=== PATIENT | male | born 1970 | race Caucasian/White ===

== ENCOUNTER 2019-01-08 19:36 | Inpatient (IN) | payer OTHER, SELFPAY ==
[2019-01-08 19:37] VITALS: BP 142/91; PULSE 79; RESP 17; TEMP 35.8; O2SAT 96; BMI 26.5
[2019-01-08 20:21] LABS: D-Dimer Quantitative (DVT/PE) < 0.27 FEU/ug/m (0.27-0.49)
--- NOTE | 2019-01-08 20:44 | CT_ITS ---
STUDY: CT ABDOMEN AND PELVIS WITH AND WITHOUT CONTRAST REASON FOR EXAM: Male, 48 years old. Left flank pain RADIATION DOSAGE (If Supplied By Facility): CTDIvol = ( 14.09 ) mGy, DLP = ( 1882.01 ) mGycm TECHNIQUE: Transaxial images were obtained from the dome of the diaphragm to the symphysis pubis without oral contrast. 100 IV Isovue 300 was administered. Sagittal and coronal images were reconstructed. Individualized dose optimization techniques were used for this CT. COMPARISON: None. FINDINGS: The visualized lung bases are unremarkable. The visualized portions of the heart are within normal limits. Normal liver. Contracted thick-walled gallbladder without calcified stones likely physiologic.. Normal spleen. Normal pancreas. Normal bilateral adrenal glands. Normal right kidney. There is multifocal scarring of left renal cortex. There is an area of diminished perfusion and hypoattenuation in the lateral aspect of the left renal cortex which may be consistent with focal infarct or inflammatory lobar nephronia. Normal visualized stomach. Mild nonspecific ileus with fecal retention in the colon. No evidence for acute appendicitis. Normal abdominal aorta. Normal inferior vena cava. Normal retroperitoneum. Normal urinary bladder. Tiny fat-containing umbilical hernia Lumbar spine demonstrates mild stenosis. CT/CT Abd/Pelvis W/WO Contrast IMPRESSION: Old scarring of the left kidney. Focal area of diminished perfusion and hypoattenuation in the lateral cortex of the left kidney consistent with evolving infarct or inflammatory lobar nephronia. Electronically Signed: Naman Dumont MD at 21:50 EDT , Service support ,
[2019-01-08 20:54] LABS: Bacteria 0 SEEN /hpf (None Seen); Mucous, Urine 0 SEEN /hpf (<or=2+); Red Blood Cells-Urine 0 SEEN /hpf (0-5); Squamous Epithelial Cells - UA 0 SEEN /hpf (0-5); White Blood Cells 0 SEEN /hpf (0-5)
[2019-01-08 20:56] LABS: Color, Urine Yellow (Yellow); Glucose, Dipstick Normal (Normal); Ketone-Dipstick Negative (Negative); Leukocyte Esterase-Dipstick Negative /ul (Negative); Nitrite-Dipstick Negative (Negative); Occult Blood-Urine Negative /ul (Negative); Protein-Dipstick Negative (Negative); Urine Bilirubin Dipstick Negative (Negative); Urine Clarity Clear (Clear); Urine Urobilinogen Normal (Normal)
[2019-01-08 21:05] LABS: Absolute Lymphocyte Count 1.26 X10^3/ul (0.83-4.51); Absolute Neutrophil Count 3.7 X10^3/uL (2.0-7.7); Basophil# 0.02 X10^3/uL; Basophil% 0.4 % (0-1); Eosinophil# 0.06 X10^3/uL; Eosinophils% 1.1 % (0-5); Hematocrit 44.8 % (40-54); Hemoglobin 15.1 g/dl (13.0-16.5); Lymphocyte # 1.26 X10^3/ul (4.0); Mean Corp Hgb Conc 33.7 g/gl (32-36); Mean Corpuscular Hgb 29.8 pg (27.0-32.0); Mean Corpuscular Volume 88.4 fL (80-94); Mean Platelet Vol. 9.8 fl (6.2-12.0); Monocyte# 0.48 X10^3/uL; Monocyte% 8.7 % (0-10); Neutrophil # 3.66 X10^3/uL (2.7-7.7); Neutrophil % 66.6 % (47-70); Platelet Count 206 K/mm3 (150-450); RBC Distribution Width CV 12.5 % (11.6-14.6); Red Blood Count 5.07 M/mm3 (4.6-6.2); White Blood Count 5.5 K/mm3 (4.4-11.0)
[2019-01-08 21:08] LABS: POSITIVE COUNT NO; POSITIVE DIFFERENTIAL NO; POSITIVE MORPHOLOGY NO
[2019-01-08 21:11] LABS: Anion Gap 5 (5-15); BUN 21 mg/dL (7-18); BUN/Creat Ratio 17.4 RATIO (10-20); Calcium,Total 8.8 mg/dL (8.5-10.1); Chloride 102 mmol/L (98-107); Creatinine, Serum 1.21 mg/dL (0.70-1.30); EST Glomerular Filtration Rate 68 mL/min (>60); Est Glom Filt Rate - Afr Amer 83 mL/min (>60); Estimated Creatinine Clearance 77.93 ml/min; Glucose 123 mg/dL (74-106); Potassium 3.8 mmol/L (3.5-5.1); Sodium Level 137 mmol/L (136-145)
--- NOTE | 2019-01-08 21:43 | ED.VISSUMM ---
- ER Visit Summary Date of Service: 01/08/19 Chief Complaint: Left flank pain History of Present Illness: The patient is a 48 M presents to the emergency department left flank pain. Patient states he had the symptoms intermittently for the past 2 days. States it radiates into his left lower quadrant. He was concerned because he does have a history of prior renal infarct 6 years ago. He was on anticoagulants for a year and a half. He states he had a significant work-up and I cannot find a reason so his anticoagulants were stopped. He now takes aspirin. He denies any urinary symptoms. He denies any fevers or chills. He is otherwise been in his normal state of health. Physical Examination: Vital signs reviewed General: Well-nourished, well-developed Head: Normocephalic, atraumatic Eyes: Pupils equal and reactive, extraocular muscles intact Neck, supple, no lymphadenopathy Heart: Regular rate and rhythm Respiratory: No distress, clear bilaterally Abdomen: Soft, nontender, nondistended, no peritoneal signs Back: Nontender Extremities: Nontender, no edema, no cords Skin: Normal color no rash Neuro: Alert and oriented, no focal or lateralizing deficits Test Results: [] Emergency Department Course and Treatment: The patient underwent CT imaging. His labs are unremarkable. CT does show a small infarct in the left kidney that looks to be involving. In review of the patient, he was told that he may have had a problem with part of his heart that never closed from when he was young. I asked him if this was a PFO, but he is not sure. Occurrence of renal infarct, I do feel he is going to require admission. Hypercoagulability work-up was pursued. The patient was covered with Lovenox. He was discussed with the hospitalist and will be admitted. Treatment Plan: [] Disposition: Admission Impression: 1. Renal infarct This note was generated with [employer] dictation software. It may contain incorrect words, spelling, and punctuation that were not noted in review of the chart prior to signing ED Disposition - Plan for ED Patient: Referrals: Care Physician,No Primary [Primary Care Provider] -
[2019-01-08 22:47] VITALS: BP 132/78; PULSE 73; RESP 16; O2SAT 98
--- NOTE | 2019-01-08 22:52 | PCM.HP.STD ---
Problem List (1) Renal infarct Status: Acute (2) history of renal infarct Status: Chronic History of Present Illness Date of Admission: 01/08/19 Chief Complaint: L flank pain The patient is a 48 y/o M w/ PMHx: Hx Renal Infarct 2012 on anticoagulation x 1.5 years and then transitioned off as hypercoaguable work-up was negative who presents to the [facility] ED on 01/08/19 with history of L sided flank pain as well as L sided abdominal pain, described as a dull aching, constant, rated 6/10 ongoing x 2 days with associated nausea without emesis and no fever or chills. He noted it felt similar to when he had prior renal infarct prompting ED evaluation. Work-up in the ED included T 96.5, heart rate 79, BP 142/91, respiratory rate 17, 96% on room air, CBC unremarkable, d-dimer less than 0.27, hypercoagulable panel pending per ED, BMP unremarkable aside glucose 123, analysis unremarkable, CT abdomen and pelvis with noted old scarring of the left kidney, focal area of diminished perfusion and hypoattenuation in the lateral cortex of the left kidney consistent with evolving infarct or inflammatory lobar nephronia. In the ED following hypercoagulable panel being obtained, therapeutic Lovenox administered. Past Medical History Past Medical History (Chronic Problems): Chronic Problems history of renal infarct (Chronic) Allergies No Known Allergies Allergy (Verified 01/08/19 19:40) Home Medications: Ambulatory Orders Medication Instructions Recorded Aspirin [Aspir 81] 81 mg PO 01/08/19 Surgical History: - - Tonsillectomy, left thumb surgery. Psychiatric History: No pertinent psych hx Lives: Spouse/ Significant Other Smoking Status: Never smoker Tobacco Use: Non-smoker Alcohol: Occasional Drugs: None - *Family History Maternal History Items: - - Patient denies any marker maternal family history including heart disease, diabetes or cancer. Paternal History Items: - - Patient notes only a paternal family history of osteoarthritis otherwise his father is healthy without any history of diabetes, cancer, heart disease. Review of Systems Constitutional: Reports: Anorexia, Malaise, Fatigue. Denies: Chills, Fever, Weight Change HEENT: Denies: Head Aches, Sinus Congestion, Sinus Drainage Cardiovascular: Denies: Chest Pain, Palpitations Respiratory: Denies: Cough, Shortness of breath at rest, Sputum production Gastrointestinal: Reports: Abdominal Pain, Nausea. Denies: Vomiting Genitourinary: Reports: - - Left-sided flank pain.. Denies: Dysuria Musculoskeletal: Reports: Back Pain. Denies: Joint Pain, Joint Tenderness Skin: Denies: Rash, Wounds Neurological: Denies: Numbness, Tingling, Focal weakness Psychiatric: Denies: Anxiety, Depression, Homicidal Ideations, Suicidal Ideations Hematologic/ Lymphatic: Reports: Hx of blood clot. Denies: Easy Bruising, Easy Bleeding VTE Information - Inpt Only VTE Present on Admission: No VTE Mechan Device Prophylaxis: SCD's VTE Pharm Prophylaxis ordered?: Yes Patient Problems: Active and Suspected Problems Renal infarct (Acute) Subjective: Seated upright in the bed, fatigued appearance, notes ongoing mild discomfort to the flank and left abdomen. Objective: Physical Examination: General: awake, alert, oriented x 3 and cooperative, seated upright in the ED bed in no apparent distress. Skin: normal color, turgor, no icterus, cyanosis. HEENT: AT/NC, EOMI, PERRLA, MMM, no carotid bruits or JVD noted. Lungs: CTA bilaterally, moderate effort, mild decrease BL bases, no rales, ronchi or wheezing, mild worsening flank discomfort with palpation. Heart: Regular rate and rhythm; no gallop, rub audible. Abdomen: soft, mild discomfort to left sided abdominal palpation, no rebound or guarding, ND, normal BS, no HSM. Extremities: no cyanosis, clubbing, or edema. Neurological: patient awake, alert, oriented x 3; cognitive function intact; pupils equally reactive to light and accomodation; cranial nerves II-XII grossly normal, moving all 4 extremities, no focal deficits, strength moderately global decrease secondary to acute presentation. Psychiatric: affect appears mildly fatigued, no acute evidence of depressive or anxiety feelings. - Physical Exam Vital Signs Temp Pulse Resp BP Pulse Ox 96.5 F L 73 16 132/78 H 98 01/08/19 19:37 01/08/19 22:47 01/08/19 22:47 01/08/19 22:47 01/08/19 22:47 Oxygen Delivery Method Room Air Weight: 185 lb Body Mass Index (BMI) 26.5 Laboratory Tests Past 24 Hrs 01/08/19 01/08/19 01/08/19 19:50 19:50 19:50 WBC 5.5 RBC 5.07 Hgb 15.1 Hct 44.8 MCV 88.4 MCH 29.8 MCHC 33.7 RDW 12.5 RDW Differential 40.0 Plt Count 206 MPV 9.8 Immature Gran % (Auto) 0.200 Neut % (Auto) 66.6 Lymph % (Auto) 23.0 [place] % (Auto) 8.7 Eos % (Auto) 1.1 Baso % (Auto) 0.4 Absolute Neuts (auto) 3.7 Absolute Lymphs (auto) 1.26 Total Counted Not Reportable D-Dimer Quant (PE/DVT) < 0.27 L Protein C Antigen Functional Protein C Prot C Funct Activity Antithrombin III Ag Func Antithrombin III Factor V Leiden Mutat Sodium 137 Potassium 3.8 Chloride 102 Carbon Dioxide 30.0 Anion Gap 5 BUN 21 H Creatinine 1.21 Estim Creat Clear Calc 77.93 Est GFR (MDRD) Af Amer 83 Est GFR (MDRD) Non-Af 68 BUN/Creatinine Ratio 17.4 Glucose 123 H Calcium 8.8 Urine Color Urine Clarity Urine pH Ur Specific [place] Urine Protein Urine Glucose (UA) Urine Ketones Urine Occult Blood Urine Nitrite Urine Bilirubin Urine Urobilinogen Ur Leukocyte Esterase Urine RBC Urine WBC Ur Squamous Epith Cells Urine Bacteria Urine Mucus Beta-2-GPI IgG Ab Beta-2-GPI IgA Ab Beta-2-GPI IgM Ab Anti-Cardiolipin IgG Ab Anti-Cardiolipin IgM Ab Factor II DNA Analysis Miscellaneous Test 01/08/19 01/08/19 01/08/19 20:41 22:30 22:30 WBC RBC Hgb Hct MCV MCH MCHC RDW RDW Differential Plt Count MPV Immature Gran % (Auto) Neut % (Auto) Lymph % (Auto) [place] % (Auto) Eos % (Auto) Baso % (Auto) Absolute Neuts (auto) Absolute Lymphs (auto) Total Counted D-Dimer Quant (PE/DVT) Protein C Antigen Pending Functional Protein C Pending Prot C Funct Activity Pending Antithrombin III Ag Pending Func Antithrombin III Pending Factor V Leiden Mutat Pending Sodium Potassium Chloride Carbon Dioxide Anion Gap BUN Creatinine Estim Creat Clear Calc Est GFR (MDRD) Af Amer Est GFR (MDRD) Non-Af BUN/Creatinine Ratio Glucose Calcium Urine Color Yellow Urine Clarity Clear Urine pH 7.0 Ur Specific [place] 1.010 Urine Protein Negative Urine Glucose (UA) Normal Urine Ketones Negative Urine Occult Blood Negative Urine Nitrite Negative Urine Bilirubin Negative Urine Urobilinogen Normal Ur Leukocyte Esterase Negative Urine RBC 0 SEEN Urine WBC 0 SEEN Ur Squamous Epith Cells 0 SEEN Urine Bacteria 0 SEEN Urine Mucus 0 SEEN Beta-2-GPI IgG Ab Pending Beta-2-GPI IgA Ab Pending Beta-2-GPI IgM Ab Pending Anti-Cardiolipin IgG Ab Pending Anti-Cardiolipin IgM Ab Pending Factor II DNA Analysis Pending Miscellaneous Test Pending Assessment/Plan All Active Problems Renal infarct (Acute) The patient is a 48 y/o M w/ PMHx: Hx Renal Infarct 2012 on anticoagulation x 1.5 years and then transitioned off as hypercoaguable work-up was negative who presents to the [facility] ED on 01/08/19 with history of L sided flank pain as well as L sided abdominal pain, described as a dull aching, constant, rated 6/10 ongoing x 2 days with associated nausea without emesis and no fever or chills. (1) Acute Left Flank Pain secondary to Suspected Acute on Chronic Renal Infarct: Work-up in the ED included T 96.5, heart rate 79, BP 142/91, respiratory rate 17, 96% on room air, CBC unremarkable, d-dimer less than 0.27, hypercoagulable panel pending per ED, BMP unremarkable aside glucose 123, analysis unremarkable, CT abdomen and pelvis with noted old scarring of the left kidney, focal area of diminished perfusion and hypoattenuation in the lateral cortex of the left kidney consistent with evolving infarct or inflammatory lobar nephronia. Will admit to PCU, maintain on cardiac telemetry, hypercoaguable panel obtained in ED prior to administration anticoagulation, obtain ECHO. Will continue therapeutic Lovenox regimen pending AM CM assistance with possible transition to newer oral anticoagulant therapy. Given second episode will likely be lifelong anticoagulant therapy. Patient will need to follow-up outpatient with hematology upon discharge. (2) GERD: Famotidine. (3) DVT prophylaxis: SCDs, as noted therapeutic lovenox pending oral anticoagulation transition. Code Visit Inpatient E&M: 27357 Init Hosp L3
[2019-01-08] MEDS: Enoxaparin 80 MG/0.8 ML Syringe SC (23:53)
[2019-01-09] VITALS (9 sets, daily range): BP systolic 119–135; BP diastolic 70–86; PULSE 59–71; RESP 14–18; TEMP 36.8–37.3; O2SAT 94–98; BMI 26.5
[2019-01-09] MEDS: 0.9% Normal Saline 1,000 ML 100 ML IV ×2 (00:50→10:06)
--- NOTE | 2019-01-09 05:55 | ECHOD_ITS ---
Reason For Study: Flank Pain Procedure This was a 2D Doppler, Color Flow transthoracic echocardiogram. Exam performed portable in patient room. Left Ventricle Normal LV size. Left ventricular systolic function is normal. The estimated ejection fraction is 65 %. No evidence for diastolic dysfunction. No regional wall motion abnormalities noted. Right Ventricle Normal RV size. Normal systolic function. Atria Normal left atrium. Normal right atrium. No doppler evidence for ASD. Mitral Valve There is no mitral annular calcification. Anterior leaflet diffuse mitral valve thickening. Equivocal mitral valve prolapse. Trivial mitral valve insufficiency. Tricuspid Valve Normal tricuspid valve. Mild tricuspid valve insufficiency. Right ventricular systolic pressure estimated to be 27 mmHg. Aortic Valve Trisinus/trileaflet aortic valve. Normal aortic valve. Pulmonic Valve The pulmonic valve is not well visualized. Trivial pulmonic valve insufficiency. Great Vessels Normal sized aortic root. Pericardium/Pleural No pericardial effusion. MMode/2D Measurements & Calculations LVIDd: 4.7 cm IVSd: 0.95 cm LA dimension: 3.1 cm LVIDs: 2.9 cm LVPWd: 0.89 cm FS: 37.6 % LAV(MOD-bp): 51.5 ml LA A4 area: 19.0 cm2 RA A4 area: 19.1 cm2 LAV(MOD-bp) Indexed: 25.6 ml/m2 LAV(MOD-sp2): 48.3 ml LAV(MOD-sp4): 49.6 ml Time Measurements MV dec time: 0.22 sec Doppler Measurements & Calculations MV E max leo: 85.7 cm/sec Lat Peak E' Leo: 18.2 cm/sec Med Peak E' Leo: 14.7 cm/sec MV A max leo: 60.0 cm/sec E/E' lat: 4.7 E/E' med: 5.8 MV E/A: 1.4 MV V2 max: 95.3 cm/sec MV P1/2t max leo: 95.3 cm/sec Ao V2 max: 116.5 cm/sec MV max P.6 mmHg MV P1/2t: 119.6 msec Ao max P.4 mmHg MV V2 mean: 58.6 cm/sec MV dec slope: 233.6 cm/sec2 MV mean P.6 mmHg MVA(P1/2t): 1.8 cm2 MV V2 VTI: 29.5 cm LV V1 max: 105.3 cm/sec PA V2 max: 119.4 cm/sec TR max leo: 244.1 cm/sec LV V1 max P.4 mmHg TR max P.8 mmHg Interpretation Summary Left ventricular systolic function is normal. The estimated ejection fraction is 65 %. Anterior leaflet diffuse mitral valve thickening. Equivocal mitral valve prolapse. Trivial mitral valve insufficiency. Mild tricuspid valve insufficiency. Trivial pulmonic valve insufficiency. Right ventricular systolic pressure estimated to be 27 mmHg. No evidence for diastolic dysfunction. Ordering Physician: Onelia Guzmán Performed By: Miles Ellison RCS
[2019-01-09 07:52] LABS: Hematocrit 40.7 % (40-54); Hemoglobin 13.8 g/dl (13.0-16.5); Mean Corp Hgb Conc 33.9 g/gl (32-36); Mean Corpuscular Hgb 30.5 pg (27.0-32.0); Mean Corpuscular Volume 89.8 fL (80-94); Mean Platelet Vol. 9.4 fl (6.2-12.0); Platelet Count 178 K/mm3 (150-450); RBC Distribution Width CV 12.5 % (11.6-14.6); Red Blood Count 4.53 M/mm3 (4.6-6.2); White Blood Count 5.4 K/mm3 (4.4-11.0)
[2019-01-09 07:53] LABS: Anion Gap 3 (5-15); BUN 16 mg/dL (7-18); BUN/Creat Ratio 14.4 RATIO (10-20); Calcium,Total 8.3 mg/dL (8.5-10.1); Chloride 106 mmol/L (98-107); Cholesterol 138 mg/dL (200); Creatinine, Serum 1.11 mg/dL (0.70-1.30); EST Glomerular Filtration Rate 75 mL/min (>60); Est Glom Filt Rate - Afr Amer 91 mL/min (>60); Estimated Creatinine Clearance 84.95 ml/min; Glucose 87 mg/dL (74-106); High Density Lipoprotein 47 mg/dL; Potassium 3.8 mmol/L (3.5-5.1); Scan Indicated on CBC? Y/N NO; Sodium Level 139 mmol/L (136-145); Triglycerides 85 mg/dL; Very Low Density Lipoprotein 17 mg/dL (5-40)
[2019-01-09] MEDS: Enoxaparin 80 MG/0.8 ML Syringe SC (08:27)
[2019-01-09] MEDS: Famotidine 20 MG Tablet PO (08:27)
--- NOTE | 2019-01-09 10:36 | CASEMGMT ---
STEPHAN OROURKE assessment: Face to Face with patient for initial transition planning/care coordination assessment. STEPHAN OROURKE introduced self and role at [facility], pt voices understanding and consents to assessment at this time. Pt is sitting up in chair in no distress at this time. Pt is A/Ox4 at this time and answers all questions appropriately at this time. Care providers, pharmacy, and demographics verified/updated at this time. PCP: Jud Payan in [place] Specialists: Urology at [facility] in the past [facility]erred [facility]acy: [facility] Insurance: [facility] [employer] Prescription Benefit: [facility] [employer] Living Will/HPOA: Pt states has LW/HPOA and is aware that they are not on file at [facility] at this time. Pt states that his , Shirley Gallegos, is HPOA. LNOK: Shirley Gallegos, Living Arrangements: Pt states that he lives with in a home and states no concerns at home at this time. Pt states is independent with ADL's. Transportation: Pt states drives self and states no transportation concerns at this time. DME/HHC: Pt has no current DME or need for any at this time. Pt states no hx of HHC or SNF in the past. Pt states no concerns with going home at time of discharge. 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 Pt states does not smoke and drinks ETOH occasionally. Pt states no further questions/concerns/needs at this time. CM to follow for any further discharge planning/needs. Advised pt to ask for CM if any further questions/concerns/needs at this time, voices understanding. Pt Goal: [place] STEPHAN OROURKE
--- NOTE | 2019-01-09 13:11 | CASEMGMT ---
STEPHAN CM Note: Jack check called to pt's pharamcy insurance ([facility]) for eliquis. Per recording, copay amount is $0. Dr. Hall texted to notify. Bandar MONTERO RN ACM
--- NOTE | 2019-01-09 13:52 | PCM.DC ---
- Discharge Diagnoses Current Active Problems: Current Active and Chronic Problems Renal infarct (Acute) Reason(s) for Visit for Discharge Instructions: Left flank pain You will use the following diet at home:: Regular Your food should be the consistency of: Regular Your liquids should be the consistency of: Regular/Thin Discharge Activity: Return to Normal Activity Additional Instructions: Take your medications as prescribed. You will be on Eliquis 10 mg twice a day for 1 week, then 5 mg twice a day until you are told to stop. You should follow-up with your primary care doctor within 2 weeks. You will be referred to a pr manager in the [facility] by your primary care doctor as discussed. Continue to keep yourself hydrated. Monitor for bleeding from any of the orifices -gums, stools as that can be a side effect of the medication. Be careful to avoid bruising or cutting herself with a sharp object as you can bleed. Allergies/Adverse Reactions: Allergies No Known Allergies Allergy (Verified 01/08/19 19:40) Medications to take at Discharge Apixaban [Eliquis] 5 mg PO BID #60 tab 01/09/19 Apixaban [Eliquis] 10 mg PO BID #14 tab 01/09/19 The following prescriptions were given: Apixaban [Eliquis] 5 mg PO BID #60 tab Transmission Status: Pending to [facility] Apixaban [Eliquis] 10 mg PO BID #14 tab Transmission Status: Pending to [facility] Primary Care Physician: Care Physician,No Primary [Primary Care Provider] - Please follow up with your Primary Care Physician in: within 2 weeks Test Results: Test results from this visit will be discussed in further detail at your follow-up appointment, if applicable. Proposed Discharge Date: 01/09/19
--- NOTE | 2019-01-09 13:57 | PCM.DC.SUM ---
Discharge Date and Diagnosis Date of Admission: 01/08/19 Date of Discharge: 01/09/19 - Primary Discharge Diagnosis Active and Suspected Problems Renal infarct (Acute) - Secondary Discharge Diagnosis Chronic Problems history of renal infarct (Chronic) Hospital Course and Treatment Imaging Results: 01/09/19 05:55 Echo Complete [ECHO] AM (NON MEDS) Clinical Impression(s) from Imaging Studies Abdomen/Pelvis CT 01/08/19 20:44 IMPRESSION: Old scarring of the left kidney. Focal area of diminished perfusion and hypoattenuation in the lateral cortex of the left kidney consistent with evolving infarct or inflammatory lobar nephronia. Electronically Signed: Naman Dumont MD at 21:50 EDT , Service support , None Operations: None Procedures: 2-D Echocardiogram Summary of Care Provided: The patient is a 48 year old M with past medical history of renal infarct in 2012, was on anticoagulation for about 1 and half years and transitioned off anticoagulation as work-up was negative. Patient presented on 12/17/18 with left-sided flank pain as well as left-sided abdominal pain. His pain was described as dull, constant, ongoing for about 2 days, associated with nausea without emesis, no fever or hematuria. He felt that this was similar to when he had his prior renal infarct. Work-up in the ED showed normal vitals. Blood work was unremarkable. Hypercoagulable panel was pending from the emergency department. His BMP was also unremarkable. CT of the abdomen and pelvis showed old scarring of the left kidney with a focal area of diminished perfusion/hypoattenuation in the lateral cortical the left kidney which was consistent with evolving infarcts. 2D echo showed EF of 65%, trivial valve insufficiency, anterior leaflet diffuse mitral valve thickening was seen. No vegetations were seen. He was admitted to the telemetry floor and started on therapeutic Lovenox. He denied any pain during his hospital stay. He was later on transitioned to Eliquis. He will follow-up with his primary care doctor within 1 -2 weeks and also with forensic toxicologist and possibly operations executive in the outpatient. He knows to follow-up with a primary care doctor for results of his hypercoagulable panel. Subjective: On the day of discharge, patient was seen and examined. Denied any complains. Denies any flank pain. Denies chest pain, dizziness, palpitations. - Physical Exam General: Alert, Oriented x3, Cooperative, No apparent distress HEENT: Atraumatic, PERRLA, EOMI, Normocephalic Oral: Moist Mucosa Neck: Supple Lungs: Clear to auscultation, Normal air movement Cardiovascular: Regular rate, Regular Rhythm, Normal S1, Normal S2, No murmurs Abdomen: Bowel Sounds Present, Soft, Non Tender, Non-Distended, No Hepato-splenomegaly Extremities: No edema Skin: No rashes Musculoskeletal: No Tenderness to Palpation of Joints or Extremities Lymphatic: No Cervical, Supraclavicular, or Inguinal Adenopathy Neurological: Cranial nerves II-XII grossly intact, Neuro grossly intact Psych/Mental Status: Normal Affect, Appropriate Vital Signs Temp Pulse Resp BP Pulse Ox 98.2 F 64 14 131/70 H 98 01/09/19 13:00 01/09/19 13:00 01/09/19 13:00 01/09/19 13:00 01/09/19 13:00 Oxygen Delivery Method Room Air Weight: 83.9 kg Body Mass Index (BMI) 26.5 Intake and Output for Last 24 Hours 01/07/19 01/08/19 01/09/19 23:59 23:59 23:59 Intake Total 528 / 528 Balance 528 / 528 Laboratory Tests Past 24 Hrs 01/08/19 01/08/19 01/08/19 19:50 19:50 19:50 WBC 5.5 RBC 5.07 Hgb 15.1 Hct 44.8 MCV 88.4 MCH 29.8 MCHC 33.7 RDW 12.5 RDW Differential 40.0 Plt Count 206 MPV 9.8 Immature Gran % (Auto) 0.200 Neut % (Auto) 66.6 Lymph % (Auto) 23.0 [place] % (Auto) 8.7 Eos % (Auto) 1.1 Baso % (Auto) 0.4 Absolute Neuts (auto) 3.7 Absolute Lymphs (auto) 1.26 Total Counted Not Reportable D-Dimer Quant (PE/DVT) < 0.27 L Protein C Antigen Functional Protein C Prot C Funct Activity Antithrombin III Ag Func Antithrombin III Factor V Leiden Mutat Sodium 137 Potassium 3.8 Chloride 102 Carbon Dioxide 30.0 Anion Gap 5 BUN 21 H Creatinine 1.21 Estim Creat Clear Calc 77.93 Est GFR (MDRD) Af Amer 83 Est GFR (MDRD) Non-Af 68 BUN/Creatinine Ratio 17.4 Glucose 123 H Calcium 8.8 Triglycerides Cholesterol LDL Cholesterol VLDL Cholesterol HDL Cholesterol Urine Color Urine Clarity Urine pH Ur Specific [place] Urine Protein Urine Glucose (UA) Urine Ketones Urine Occult Blood Urine Nitrite Urine Bilirubin Urine Urobilinogen Ur Leukocyte Esterase Urine RBC Urine WBC Ur Squamous Epith Cells Urine Bacteria Urine Mucus Beta-2-GPI IgG Ab Beta-2-GPI IgA Ab Beta-2-GPI IgM Ab Anti-Cardiolipin IgG Ab Anti-Cardiolipin IgM Ab Factor II DNA Analysis Miscellaneous Test 01/08/19 01/08/19 01/08/19 20:41 22:30 22:30 WBC RBC Hgb Hct MCV MCH MCHC RDW RDW Differential Plt Count MPV Immature Gran % (Auto) Neut % (Auto) Lymph % (Auto) [place] % (Auto) Eos % (Auto) Baso % (Auto) Absolute Neuts (auto) Absolute Lymphs (auto) Total Counted D-Dimer Quant (PE/DVT) Protein C Antigen Pending Functional Protein C Pending Prot C Funct Activity Pending Antithrombin III Ag Pending Func Antithrombin III Pending Factor V Leiden Mutat Pending Sodium Potassium Chloride Carbon Dioxide Anion Gap BUN Creatinine Estim Creat Clear Calc Est GFR (MDRD) Af Amer Est GFR (MDRD) Non-Af BUN/Creatinine Ratio Glucose Calcium Triglycerides Cholesterol LDL Cholesterol VLDL Cholesterol HDL Cholesterol Urine Color Yellow Urine Clarity Clear Urine pH 7.0 Ur Specific [place] 1.010 Urine Protein Negative Urine Glucose (UA) Normal Urine Ketones Negative Urine Occult Blood Negative Urine Nitrite Negative Urine Bilirubin Negative Urine Urobilinogen Normal Ur Leukocyte Esterase Negative Urine RBC 0 SEEN Urine WBC 0 SEEN Ur Squamous Epith Cells 0 SEEN Urine Bacteria 0 SEEN Urine Mucus 0 SEEN Beta-2-GPI IgG Ab Pending Beta-2-GPI IgA Ab Pending Beta-2-GPI IgM Ab Pending Anti-Cardiolipin IgG Ab Pending Anti-Cardiolipin IgM Ab Pending Factor II DNA Analysis Pending Miscellaneous Test Pending 01/09/19 01/09/19 07:05 07:05 WBC 5.4 RBC 4.53 L Hgb 13.8 Hct 40.7 MCV 89.8 MCH 30.5 MCHC 33.9 RDW 12.5 RDW Differential 41.0 Plt Count 178 MPV 9.4 Immature Gran % (Auto) Neut % (Auto) Lymph % (Auto) [place] % (Auto) Eos % (Auto) Baso % (Auto) Absolute Neuts (auto) Absolute Lymphs (auto) Total Counted D-Dimer Quant (PE/DVT) Protein C Antigen Functional Protein C Prot C Funct Activity Antithrombin III Ag Func Antithrombin III Factor V Leiden Mutat Sodium 139 Potassium 3.8 Chloride 106 Carbon Dioxide 30.0 Anion Gap 3 L BUN 16 Creatinine 1.11 Estim Creat Clear Calc 84.95 Est GFR (MDRD) Af Amer 91 Est GFR (MDRD) Non-Af 75 BUN/Creatinine Ratio 14.4 Glucose 87 Calcium 8.3 L Triglycerides 85 Cholesterol 138 LDL Cholesterol 74 VLDL Cholesterol 17 HDL Cholesterol 47 Urine Color Urine Clarity Urine pH Ur Specific [place] Urine Protein Urine Glucose (UA) Urine Ketones Urine Occult Blood Urine Nitrite Urine Bilirubin Urine Urobilinogen Ur Leukocyte Esterase Urine RBC Urine WBC Ur Squamous Epith Cells Urine Bacteria Urine Mucus Beta-2-GPI IgG Ab Beta-2-GPI IgA Ab Beta-2-GPI IgM Ab Anti-Cardiolipin IgG Ab Anti-Cardiolipin IgM Ab Factor II DNA Analysis Miscellaneous Test Discharge Diet: No Restrictions Discharge Activity: Return to Normal Activity Weight Bearing Status: Weight bearing as tolerated Home Medications: Medications to take at Discharge Apixaban [Eliquis] 5 mg PO BID #60 tab 01/09/19 Apixaban [Eliquis] 10 mg PO BID #14 tab 01/09/19 Following Prescrptions Were Given to Patient: Apixaban [Eliquis] 5 mg PO BID #60 tab Transmission Status: Received by [facility] Apixaban [Eliquis] 10 mg PO BID #14 tab Transmission Status: Received by [facility] Primary Care Physician: Care Physician,No Primary [Primary Care Provider] - Please follow up with your Primary Care Physician in: within 2 weeks Disposition: Home Minutes spent on discharge:: 40 Patient Condition:: Stable Medical Necessity - Tobacco Use Smoking Status: Never smoker Tobacco Use: Non-smoker Meaningful Use Info Meaningful Use Diagnoses (Choose all that apply): None applicable Code Visit Inpatient E&M: 50468 Disch Hosp
[2019-01-15 18:45] LABS: Protein C Antigen 94 % (60-150); Protein C, Functional 105 % (73-180)
[2019-01-16 16:40] LABS: Anti-Cardiolipin Ab, IgG, Qn < 9 GPL U/mL (0-14); Anti-Cardiolipin Ab, IgM, Qn < 9 MPL U/mL (0-12); Anti-Thrombin 3 AG, Immunol 94 % (72-124); Antithrombin 3 Function 107 % (75-135); Beta-2-Glycoprotein I IgA <9 (0-25); Beta-2-Glycoprotein I IgG <9 (0-20); Beta-2-Glycoprotein I IgM <9 (0-32)
== END 2019-01-09 18:10 | disposition home or self-care (01) | DRG 700 ==
LOC: ED 21:18 → PCU 01-09 00:07
PROVIDERS: Admitting Provider Family Medicine; Emergency Provider Emergency Medicine; Visit Provider Internal Medicine
DX: N28.0 Ischemia and infarction of kidney (principal); Z87.448 Personal history of other diseases of urinary system
CPT/HCPCS: 36415; 74178; 80048; 80061; 81001; 81240; 81241; 85025; 85027; 85300; 85301; 85302; 85303; 85379; 86146; 86147; 93306; 99284; J7030; Q9957; A4216

== ENCOUNTER 2019-07-23 19:28 | Emergency (ER) | payer OTHER, SELFPAY ==
[2019-01-09 00:29] VITALS: BMI 26.5
[2019-07-23 19:28] VITALS: BP 136/80; PULSE 92; RESP 18; TEMP 36.7; O2SAT 96; BMI 26.5
--- NOTE | 2019-07-23 21:32 | EKG12_ITS ---
Test Reason : PALPITATIONS Blood Pressure : / mmHG Vent. Rate : 086 BPM Atrial Rate : 086 BPM P-R Int : 152 ms QRS Dur : 084 ms QT Int : 354 ms P-R-T Axes : 076 045 064 degrees QTc Int : 423 ms Normal sinus rhythm with sinus arrhythmia Nonspecific T wave abnormality Abnormal ECG Confirmed by LA QUAN, JIMMY ([id number]), news editor DAYTON CANALES ([id number]) on 07/25/2019 11:00:19 AM Referred By: BENEDICT Confirmed By:JIMMY TOVAR MD
--- NOTE | 2019-07-23 21:42 | RAD_ITS ---
STUDY: X-RAY CHEST REASON FOR EXAM: Male, 49 years old. C/O SOB AND PALPITATIONS X1 WEEK, WORSENING TODAY. TECHNIQUE: Single AP portable view of the chest. X2 COMPARISON: None. FINDINGS: The lungs are clear and expanded. There is no demonstrated pleural abnormality. Normal size heart. Normal mediastinum and madan. Normal visualized pulmonary arteries. Normal visualized aortic arch and descending thoracic aorta. Normal visualized thoracic spine. Normal visualized ribs, clavicles, and shoulders. There is no demonstrated abnormality of the visualized soft tissue structures of the upper abdomen. RAD/Chest 1 View (Portable) IMPRESSION: Normal x-ray examination of the chest. Electronically Signed: Angela Burden MD at 22:41 EST Tel , Service support ,
[2019-07-23 22:02] VITALS: PULSE 73; RESP 18; O2SAT 97
--- NOTE | 2019-07-23 22:09 | ED.VISSUMM ---
- ER Visit Summary Date of Service: 07/23/19 Chief Complaint: Palpitations History of Present Illness: The patient is a 49 M who presents with palpitations and shortness of breath that has been intermittent over the past few days. Patient describes the pain as fluttering. Patient states he feels it mostly in his chest. Patient states nothing makes it better or worse. Patient denies any fevers or chills. Patient denies any cough. Patient states he does occasionally get some pain into his back. Patient states this feels different than when he was diagnosed with a blood clot in his left renal artery. Physical Examination: Vital signs are stable. Patient is afebrile. Patient is in no acute distress. Oral mucosa is pink and moist. Neck is supple. Trachea is midline. There is no JVD. Heart was regular rate and rhythm. Lungs are clear and equal bilaterally. Abdomen is soft. Bowel sounds are normal. There is no tenderness. Cranial nerves II through XII are intact. There are no focal motor or sensory deficits noted. Extremities are intact. There is no calf tenderness or edema. Test Results: EKG shows normal sinus rhythm with a rate of 86. There are no acute ST or T wave changes. CBC was normal. Basic metabolic profile showed a slightly elevated BUN of 24 and a slightly elevated glucose of 134. Troponin was normal. Portable chest x-ray was obtained. There is no acute cardiopulmonary process. This was interpreted by the radiologist and myself. Emergency Department Course and Treatment: Patient was maintained on mushroom spawn maker. Patient had no episodes of SVT, ectopics, or V. tach. Patient was instructed to follow-up with his primary care physician in 5 to 7 days for further evaluation. Patient was instructed that he may need a prolonged heart monitor. Patient understood and was agreeable with the plan. All questions were answered. Disposition: Discharge home Impression: Palpitations This note was generated with [employer] dictation software. It may contain incorrect words, spelling, and punctuation that were not noted in review of the chart prior to signing ED Disposition - Plan for ED Patient: Disposition: Home or Assisted Living Diagnosis: Palpitations Instructions: Palpitations Referrals: JOÃO LEE [Other] - 5-7 Days
[2019-07-23 22:38] LABS: Absolute Lymphocyte Count 1.34 X10^3/uL (0.83-4.51); Absolute Neutrophil Count 2.9 X10^3/uL (2.0-7.7); Basophil# 0.04 X10^3/uL; Basophil% 0.8 % (0-1); Eosinophil# 0.04 X10^3/uL; Eosinophils% 0.8 % (0-5); Hematocrit 44.5 % (40-54); Hemoglobin 15.1 g/dL (13.0-16.5); Lymphocyte # 1.34 X10^3/ul (4.0); Lymphocyte % 28.4 % (19-41); Mean Corp Hgb Conc 33.9 g/dL (32-36); Mean Corpuscular Hgb 30.8 pg (27.0-32.0); Mean Corpuscular Volume 90.6 fL (80-94); Mean Platelet Vol. 9.2 fl (6.2-12.0); Monocyte% 8.5 % (0-10); NRBC Flagged by Analyzer 0 % (0-5); Neutrophil # 2.89 X10^3/uL (2.7-7.7); Neutrophil % 61.3 % (47-70); Platelet Count 194 K/mm3 (150-450); RBC Distribution Width SD 39.4 fl (35.1-43.9); Red Blood Count 4.91 M/mm3 (4.6-6.2); White Blood Count 4.7 K/mm3 (4.4-11.0)
[2019-07-23 22:50] LABS: Anion Gap 2 (5-15); BUN 24 mg/dL (7-18); Calcium,Total 8.9 mg/dL (8.5-10.1); Chloride 108 mmol/L (98-107); Creatinine, Serum 1.09 mg/dL (0.70-1.30); EST Glomerular Filtration Rate 77 mL/min (>60); Est Glom Filt Rate - Afr Amer 93 mL/min (>60); Estimated Creatinine Clearance 85.58 ml/min; Glucose 134 mg/dL (74-106); Potassium 3.5 mmol/L (3.5-5.1); Sodium Level 140 mmol/L (136-145)
[2019-07-23 23:50] VITALS: BP 130/80; PULSE 59; RESP 24; O2SAT 96
== END 2019-07-23 23:51 | disposition home or self-care (01) ==
PROVIDERS: Emergency Provider Emergency Medicine
DX: R00.2 Palpitations (principal); R06.00 Dyspnea, unspecified; M54.9 Dorsalgia, unspecified
CPT/HCPCS: 71045; 80048; 84484; 85025; 93005; 99284; A4216

== ENCOUNTER 2020-11-29 18:02 | Emergency (ER) | payer OTHER, SELFPAY ==
[2020-11-29 18:03] VITALS: BP 132/76; PULSE 101; RESP 18; TEMP 36.1; O2SAT 97; BMI 26.9
--- NOTE | 2020-11-29 19:11 | CT_ITS ---
STUDY: CT BRAIN WITHOUT CONTRAST REASON FOR EXAM: Male, 50 years old. Dizziness weakness tingling, history of renal infarct RADIATION DOSAGE (If Supplied By Facility): CTDIvol = ( 44.99 ) mGy, DLP = ( 779.24 ) mGycm TECHNIQUE: Transaxial CT imaging of the brain was performed without administration of intravenous contrast material. Individualized dose optimization techniques were used for this CT. COMPARISON: No relevant priors. FINDINGS: Brain parenchyma is without focal lesions, mass effect, acute intracranial hemorrhage, extra parenchymal fluid collections, hydrocephalus or herniation. The skull is intact. CT/Brain/Head without Contrast IMPRESSION: 1. Normal CT brain. Electronically Signed: Leigh Holder MD at 20:15 EDT Tel , Service support ,
--- NOTE | 2020-11-29 19:12 | EDS_ITS ---
HPI History of Present Illness Chief Complaint: Dizziness Informant: patient Onset/Context/Timing Onset: Month(s) Timing: Intermittent Current Severity: Mild Maximum Severity: Mild Narrative Narrative: Middle-aged male complaining of diffuse whole body tingling for months but more consistent last 2 weeks. He saw neurologist and supervisor shop had unremarkable lab work and a normal EMG. Currently has no primary care physician. He denies any falls or recent head trauma. He is on blood thinners due to prior renal clots. He denies any headache. He denies any visual change. He denies any trouble walking or with his speech. Prior similar symptoms: Yes Recent Illness/Hospitalization: No PFSH PFSH Home Medications apixaban 5 mg PO BID #60 tab 01/09/19 [Rx Last Taken Unknown] lisinopril [Prinivil] 20 mg PO DAILY 11/29/20 [History Last Taken Unknown] Allergy/AdvReac Type Severity Reaction Status Date / Time No Known Allergies Allergy Verified 11/29/20 18:05 Social History Smoking Status: Never smoker ROS ROS ED ROS Narrative Patient denies any recent illness. Review of Systems ROS Unobtainable: Denies due to encephalopathy or due to endotracheal tube Constitutional Constitutional ED: Denies chills or fever(s) Eyes Eyes: Denies change in vision ENT ENT ED: Denies ear pain or sore throat Cardiovascular Cardiovascular: Denies chest pain or palpitations Respiratory/Chest Respiratory/Chest: Denies cough or dyspnea Gastrointestinal Gastrointestinal: Denies abdominal pain, constipation, diarrhea, nausea or vomiting Genitourinary Genitourinary ED: Denies dysuria or hematuria Musculoskeletal Musculoskeletal: Denies arthralgias or myalgias Integumentary Denies abscess or rash Neurologic Neurologic: Denies headache(s) Psychiatric Psychiatric: Denies depression Endocrine Endocrinology: Denies polyuria Allergic/Immunologic Allergic/Immunologic ED: Denies urticaria EXAM Physical Exam Narrative Exam Narrative: Middle-aged male no acute distress. Vital signs stable afebrile. Const Vital Signs: 11/29/20 18:03 Temperature 97 F L Temperature Source Temporal Pulse Rate 101 H Respiratory Rate 18 Blood Pressure 132/76 H Blood Pressure Mean 94 Pulse Ox 97 Oxygen Delivery Method Room Air Positive well nourished and well developed General Appearance ED: well developed HEENT Reports moist mucous membranes Negative for trauma or tenderness Eyes PERRL and EOMs intact bilaterally General Eye ED: Negative for pale conjunctiva or scleral icterus Neck no lymphadenopathy, supple and no JVD General: Negative for tenderness Chest Wall inspection of chest normal Resp normal respiratory effort and clear to auscultation bilaterally Cardio regular rate, regular rhythm and no murmurs Rate: Negative for bradycardia or tachycardic GI normal to inspection, nondistended, normoactive bowel sounds, non-tender and non-distended Auscultation: normoactive bowel sounds Palpation: soft Back/Spine no CVA tenderness Extremity normal to inspection Extremity Narrative: Both upper and lower extremities have normal strength, range of motion and sensation. Normal dexterity. Neuro oriented x3, CN's II-XII intact bilaterally and No no sensory deficits noted Neuro Narrative: Fingertip to nose and [id number] within normal limits. Normal speech. No facial droop. NIH of 0. Sensorium / Orientation: alert; Negative for orientation impaired, lethargic or stuporous Sensory Exam: No sensory level loss detected Motor Exam: strength 5/5 throughout; Negative for general weakness Psych mental status grossly normal Skin no rashes or lesions noted MDM MDM MDM Narrative Medical decision making narrative: Gentleman with tingling. Patient has a normal exam. Patient wants a work-up done. I explained to him I do not think work-up finding today but I would pursue a CAT scan of his brain and screening labs. Repeat exam patient is doing well at 10:25 PM and will be discharged home. Lab Data Attestation: I reviewed the patient's lab results. Lab results narrative: CBC normal. Chemistries unremarkable. Normal creatinine and gap. Normal potassium. Normal calcium and glucose. CAT scan of the brain without contrast read with radiologist showed no acute abnormality. Reviewed by myself. Labs: Laboratory Results - last 24 hr 11/29/20 11/29/20 17:26 17:26 WBC 5.0 RBC 4.77 Hgb 14.8 Hct 43.3 MCV 90.8 MCH 31.0 MCHC 34.2 RDW Std Deviation 38.2 RDW Coeff of [place] 11.4 L Plt Count 229 MPV 9.5 Sodium 140 Potassium 4.0 Chloride 105 Carbon Dioxide 30.0 Anion Gap 5 BUN 24 H Creatinine 1.11 Estim Creat Clear Calc 83.12 Est GFR (MDRD) Af Amer 90 Est GFR (MDRD) Non-Af 75 BUN/Creatinine Ratio 21.6 H Glucose 82 Calcium 9.3 Radiography Diagnostic Testing: Radiology Impression Brain CT 11/29/20 19:11 IMPRESSION: 1. Normal CT brain. Electronically Signed: Leigh Holder MD at 20:15 EDT Tel , Service support , Discharge Plan Triage Chief Complaint: Dizziness ED Provider: Ayo Carmen Dx/Rx/DC Orders Clinical Impression: Tingling in extremities, history of renal infarct, Dizziness of unknown cause Instructions: ED Dizziness, Uncertain Cause Prescriptions: No Action apixaban 5 MG tablet 5 mg PO BID Qty: 60 RF: 0 lisinopril [Prinivil] 20 mg tablet 20 mg PO DAILY RF: 0 Primary Care Provider: Care Physician,No Primary Referrals: Brian Corona MD [NON-STAFF] - 1 Week if not improving Care Physician,No Primary [Primary Care Provider] - Activity Restrictions/Additional Instructions: Your exam, vital signs, lab work and CAT scan are all normal. Follow-up as an outpatient with a primary care physician. Disposition Disposition: Home, self care
[2020-11-29 19:45] LABS: Hematocrit 43.3 % (40-54); Hemoglobin 14.8 g/dL (13.0-16.5); Mean Corp Hgb Conc 34.2 g/dL (32-36); Mean Corpuscular Volume 90.8 fL (80-94); Mean Platelet Vol. 9.5 fl (6.2-12.0); Platelet Count 229 K/mm3 (150-450); RBC Distribution Width CV 11.4 % (11.6-14.6); RBC Distribution Width SD 38.2 fl (35.1-43.9); Red Blood Count 4.77 M/mm3 (4.6-6.2)
[2020-11-29 19:57] LABS: Anion Gap 5 (5-15); BUN 24 mg/dL (7-18); BUN/Creat Ratio 21.6 RATIO (10-20); Calcium,Total 9.3 mg/dL (8.5-10.1); Chloride 105 mmol/L (98-107); Creatinine, Serum 1.11 mg/dL (0.70-1.30); EST Glomerular Filtration Rate 75 mL/min (>60); Est Glom Filt Rate - Afr Amer 90 mL/min (>60); Estimated Creatinine Clearance 83.12 ml/min; Glucose 82 mg/dL (74-106); Sodium Level 140 mmol/L (136-145)
[2020-11-29 22:43] VITALS: BP 124/80; PULSE 76; RESP 16
== END 2020-11-29 22:43 | disposition home or self-care (01) ==
PROVIDERS: Emergency Provider Emergency Medicine
DX: R20.2 Paresthesia of skin (principal); R42 Dizziness and giddiness; Z87.448 Personal history of other diseases of urinary system; Z79.01 Long term (current) use of anticoagulants; Z79.899 Other long term (current) drug therapy
CPT/HCPCS: 70450; 80048; 85027; 99283